=== PATIENT | female | born 1990 | race American Indian/Alaskan Native ===

== ENCOUNTER 2020-10-20 22:19 | Emergency (ER) | payer SELFPAY ==
[2020-10-20 23:35] VITALS: BP 132/87
[2020-10-21 01:28] LABS: HCG Qualitative,Urine Negative (Negative)
[2020-10-21 01:35] LABS: Bacteria,Urine 2+ /HPF (Negative); Bilirubin,Urine NEG (Negative); Blood,Urine MOD (Negative); Calcium Oxalate Crystals,Urine 2+; Color,Urine Amber (Yellow); Mucus,Urine 3+ /HPF
--- NOTE | 2020-10-21 01:37 | Emergency Department Report ---
ED General Adult HPI - General Chief complaint: Urogenital-Female Stated complaint: VAGINAL DISCOMFORT Time Seen by Provider: 10/21/20 01:07 Source: patient Mode of arrival: Ambulatory Limitations: No Limitations - History of Present Illness Initial comments: Patient presents for dysuria frequency urgency x2 weeks. Patient denies fevers or chills no nausea or vomiting. Last menstrual cycle 1 week ago. There is intermittent abdominal cramping bilateral lower. Symptoms are exacerbated by voiding. Symptoms are relieved by nothing tried. - Related Data Previous Rx's Medication Instructions Recorded Last Taken Type metroNIDAZOLE [Flagyl] 500 mg PO BID 7 Days #14 tab 10/21/20 Unknown Rx Allergies Allergy/AdvReac Type Severity Reaction Status Date / Time Penicillins Allergy Swelling Verified 10/20/20 23:25 ED Review of Systems ROS: Stated complaint: VAGINAL DISCOMFORT Other details as noted in HPI Constitutional: denies: chills, fever Eyes: denies: eye pain, eye discharge, vision change ENT: denies: ear pain, throat pain, congestion Respiratory: denies: cough, shortness of breath, wheezing Cardiovascular: denies: chest pain, palpitations Endocrine: no symptoms reported Gastrointestinal: denies: abdominal pain, nausea, vomiting, diarrhea, hematemesis Genitourinary: urgency, dysuria, frequency. denies: discharge, dyspareunia Musculoskeletal: denies: back pain, joint swelling, arthralgia, myalgia Skin: as per HPI. denies: rash, lesions, change in color Neurological: denies: headache, weakness, paresthesias, vertigo Psychiatric: denies: anxiety, depression Hematological/Lymphatic: denies: easy bleeding, easy bruising ED Past Medical Hx - Past Medical History Previous Medical History?: No - Surgical History Past Surgical History?: No - Social History Smoking Status: Never Smoker Substance Use Type: None - Medications Home Medications: Home Medications Medication Instructions Recorded Confirmed Last Taken Type metroNIDAZOLE [Flagyl] 500 mg PO BID 7 Days #14 tab 10/21/20 Unknown Rx ED Physical Exam - General Limitations: No Limitations General appearance: alert, in no apparent distress - Head Head exam: Present: atraumatic, normocephalic - Eye Eye exam: Present: normal appearance, EOMI Pupils: Present: normal accommodation - ENT ENT exam: Present: mucous membranes moist - Neck Neck exam: Present: normal inspection (Because he is in standing in [place]), full ROM. Absent: tenderness - Respiratory Respiratory exam: Present: normal lung sounds bilaterally. Absent: respiratory distress, wheezes - Cardiovascular Cardiovascular Exam: Present: regular rate, normal rhythm, normal heart sounds. Absent: systolic murmur, diastolic murmur, rubs, gallop - GI/Abdominal GI/Abdominal exam: Present: soft, normal bowel sounds. Absent: distended, tenderness - Rectal Rectal exam: Present: deferred - External exam: Present: other (deferred per patient ) - Extremities Exam Extremities exam: Present: normal inspection, full ROM (Collection). Absent: tenderness ( is seen) - Back Exam Back exam: Present: normal inspection (Is), full ROM ( left lumbar did not permit where vertebral). Absent: CVA tenderness (R) ( in the general), CVA tenderness (L) (This with peds team I do not see any need to get with established) - Neurological Exam Neurological exam: Present: alert ( processes), oriented X3, normal gait - Psychiatric Psychiatric exam: Present: normal affect, normal mood - Skin Skin exam: Present: warm (Appointment counseling patient is back in ED), dry, intact, normal color. Absent: rash ED Course Vital Signs 10/20/20 23:26 Temperature 98.9 F Pulse Rate 67 Respiratory 18 Rate Blood Pressure 132/87 O2 Sat by Pulse 99 Oximetry ED Medical Decision Making - Lab Data Labs 10/20/20 23:36 Urine Color Patricia Urine Turbidity Cloudy Urine pH 6.0 Ur Specific [place] 1.028 Urine Protein 30 mg/dl Urine Glucose (UA) Neg Urine Ketones Neg Urine Blood Mod Urine Nitrite Neg Ur Reducing Substances Not Reportable Urine Bilirubin Neg Urine Ictotest Not Reportable Urine Urobilinogen 2.0 Ur Leukocyte Esterase Mod Urine WBC (Auto) 34.0 H Urine RBC (Auto) 25.0 U Epithel Cells (Auto) 71.0 H Urine Bacteria (Auto) 2+ Calcium Oxalate Crystal 2+ Urine Mucus 3+ Urine HCG, Qual Negative - Medical Decision Making UA noted for leukocytes WBCs and mucus. Plan treat for dysuria, follow with PCP in 2 to 3 days. Follow-up with health department for HIV and and PSV screening. Critical care attestation.: If time is entered above; I have spent that time in minutes in the direct care of this critically ill patient, excluding procedure time. ED Disposition Clinical Impression: Dysuria Vaginitis Qualifiers: Chronicity: acute Qualified Code(s): N76.0 - Acute vaginitis Disposition: DC- TO HOME OR SELFCARE Is pt being admited?: No Does the pt Need Aspirin: No Condition: Stable Instructions: Atrophic Vaginitis, [id number], Urinary Tract Infection, Adult, [id number] Additional Instructions: Take medications as prescribed. Do not drink alcohol with Flagyl. Follow-up with health department for HIV and HSV screening. Return to emergency department should symptoms worsen. Prescriptions: metroNIDAZOLE [Flagyl] 500 mg PO BID 7 Days #14 tab Referrals: [facility] [Provider Group] - 3-5 Days Forms: Work/School Release Form(ED) Time of Disposition: 02:40
[2020-10-21] MEDS ORDERED: LIDOCAINE-MPF (1%) 10 MG/1 ML VIAL 5 ML INFILTRATI ONE (02:30)
[2020-10-21] MEDS ORDERED: AZITHROMYCIN 250 MG TAB PO ONE (02:30)
== END 2020-10-21 03:15 | disposition home or self-care (01) ==
LOC: ED 22:19
DX: N76.0 Acute vaginitis (principal)
CPT/HCPCS: 81001; 81025; 87086; 96372; 99283; J0696